=== PATIENT | female | born 1995 | race Caucasian/White ===

== ENCOUNTER 2016-10-25 19:46 | Emergency (ER) | payer BC ==
[2016-10-25] MEDS ORDERED: DIPHENHYDRAMINE HCL 50 MG CAPSULE PO ONE (20:05)
[2016-10-25] MEDS ORDERED: PROCHLORPERAZINE MALEATE 10 MG TABLET PO ONE (20:05)
[2016-10-25] MEDS ORDERED: ACETAMINOPHEN 325 MG TABLET PO ONE (20:05)
--- NOTE | 2016-10-25 20:09 | ER Document Report ---
ED Medical Screen (RME) - General Stated Complaint: HEADACHE Time seen by provider: 20:03 Mode of Arrival: Ambulatory Information source: Patient Notes: 21-year-old normally healthy female had a spontaneous nosebleed yesterday at 9 PM while she was in the car. 10 minutes later she had agradual onset 3/5 frontal headache that radiated around to the posterior occiput. She took Motrin and went to sleep. When she woke up this morning the headache was 4/5 headache now is 5/5. Has Nexplanon and does not take any anticoagulants. No hx migraines. I have greeted and performed a rapid initial assessment of this patient. A comprehensive ED assessment, evaluation of the patient, analysis of test results , and completion of the medical decision making process will be contacted by additional ED providers. I have consulted with the supervisory physician dr rodney per [facility] Guidelines. for labs and CT - Related Data Allergies/Adverse Reactions: No Known Allergies Allergy (Unverified 10/25/16 20:04) Physical Exam - Vital signs Vitals: Temp Pulse Resp BP Pulse Ox 97.9 F 72 16 153/81 H 97 10/25/16 19:57 10/25/16 19:57 10/25/16 19:57 10/25/16 19:57 10/25/16 19:57 Course - Vital Signs Vital signs: Temp Pulse Resp BP Pulse Ox 97.9 F 72 16 153/81 H 97 10/25/16 19:57 10/25/16 19:57 10/25/16 19:57 10/25/16 19:57 10/25/16 19:57
[2016-10-25 20:24] LABS: ABSOLUTE BASOPHILS # (AUTO) 0.1 10^3/uL (0.0-0.2); ABSOLUTE LYMPHOCYTES (AUTO) 2.5 10^3/uL (0.5-4.7); ABSOLUTE MONOCYTES (AUTO) 0.5 10^3/uL (0.1-1.4); BASOPHILS % (AUTO) 0.8 % (0-2); EOSINOPHILS % (AUTO) 0.5 % (0-6); HEMATOCRIT 44.2 % (36.0-47.0); HGB HCT DIFFERENCE 0.8; LYMPHOCYTES % (AUTO) 30.5 % (13-45); MEAN CORPUSCULAR HEMOGLOBIN 31.2 pg (27.0-33.4); MEAN CORPUSCULAR VOLUME 92 fl (80-97); MONOCYTES % (AUTO) 6.4 % (3-13); RED BLOOD COUNT 4.81 10^6/uL (3.72-5.28); RED CELL DISTRIBUTION WIDTH 12.8 % (11.5-14.0); SEGMENTED NEUTROPHILS % (AUTO) 61.8 % (42-78); WHITE BLOOD COUNT 8.1 10^3/uL (4.0-10.5)
[2016-10-25 20:49] LABS: PROTHROMBIN TIME 11.8 SEC (11.4-15.4)
[2016-10-25 20:50] LABS: PARTIAL THROMBOPLASTIN TIME 25.8 SEC (23.5-35.8)
[2016-10-25] MEDS ORDERED: PROCHLORPERAZINE EDISYLATE INJ 10 MG/2 ML VIAL IV ONE (22:21)
[2016-10-25] MEDS ORDERED: KETOROLAC TROMETHAMINE INJ/PF 30 MG/1 ML SDV IV ONE (22:22)
[2016-10-25] MEDS ORDERED: DIPHENHYDRAMINE HCL 50 MG/ML VIAL IV ONE (22:22)
[2016-10-25] MEDS ORDERED: NORMAL SALINE 1000 ML 1,000 ML IV ONE (22:22)
--- NOTE | 2016-10-25 22:28 | ER Document Report ---
ED General - General Chief Complaint: Headache Stated Complaint: HEADACHE Mode of Arrival: Ambulatory Notes: Patient is a 21-year-old female without significant past medical history, does take control pills who presents with a severe headache. Describes the headache as a constant, throbbing headache over the bitemporal region. Worsened by light and sounds. States it started last night after she developed a nosebleed. States it has progressively worsens onset. States reached maximal intensity approximately 15-20 hours after onset. No history of similar symptoms in the past to this degree of severity. She has tried ibuprofen at home without any improvement of her symptoms. She has not seen her primary care physician regarding today's concerns. She denies any associated fever, neck pain, altered mental status, vomiting, weakness or numbness. - Related Data Allergies/Adverse Reactions: No Known Allergies Allergy (Unverified 10/25/16 20:04) Past Medical History - General Information source: Patient - Social History Smoking Status: Never Smoker Frequency of alcohol use: None Drug Abuse: None Lives with: Parents Family History: Reviewed & Not Pertinent Renal/ Medical History: Denies: Hx Peritoneal Dialysis Past Surgical History: Reports: Hx Oral Surgery - Immunizations Hx Diphtheria, Pertussis, Tetanus Vaccination: Yes Review of Systems - Review of Systems Notes: Constitutional: Negative for fever. HENT: Negative for sore throat. Eyes: Negative for visual changes. Cardiovascular: Negative for chest pain. Respiratory: Negative for shortness of breath. Gastrointestinal: Negative for abdominal pain, vomiting or diarrhea. Genitourinary: Negative for dysuria. Musculoskeletal: Negative for back pain. Skin: Negative for rash. Neurological: Positive for headaches, negative for weakness or numbness. 10 point ROS negative except as marked above and in HPI. Physical Exam - Vital signs Vitals: Temp Pulse Resp BP Pulse Ox 97.9 F 72 16 153/81 H 97 10/25/16 19:57 10/25/16 19:57 10/25/16 19:57 10/25/16 19:57 10/25/16 19:57 Interpretation: Hypertensive Notes: PHYSICAL EXAMINATION: GENERAL: Well-appearing, well-nourished and in no acute distress. HEAD: Atraumatic, normocephalic. EYES: Pupils equal round and reactive to light, extraocular movements intact, sclera anicteric, conjunctiva are normal. ENT: nares patent, oropharynx clear without exudates. Moist mucous membranes. NECK: Normal range of motion, supple without lymphadenopathy LUNGS: Breath sounds clear to auscultation bilaterally and equal. No wheezes rales or rhonchi. HEART: Regular rate and rhythm without murmurs ABDOMEN: Soft, nontender, normoactive bowel sounds. No guarding, no rebound. No masses appreciated. EXTREMITIES: Normal range of motion, no pitting or edema. No cyanosis. NEUROLOGICAL: Face symmetric. Tongue protrudes midline. Extraocular motions intact. Pupils are 2 mm and equally reactive. Normal speech, normal gait. 5 out of 5 strength in both the distal and proximal upper and lower extremities bilaterally. Sensation is grossly intact throughout. Finger to nose testing normal. Pronator drift normal. PSYCH: Normal mood, normal affect. SKIN: Warm, Dry, normal turgor, no rashes or lesions noted. Course - Re-evaluation Re-evalutation: 10/25/16 22:28 Presentation of a headache that appears to be most consistent with tension versus migrainous type headache. Headache was not maximal in onset, patient has no focal neurologic deficits, no nuchal rigidity, vital signs within normal limits, no papilledema, and patient is overall well in appearance. Based on clinical history and examination I do not suspect an acute subarachnoid hemorrhage, dural venous sinus thrombosis, acute meningitis, or intercranial mass. Given my low clinical suspicion for any acute life-threatening etiology, I do not feel advanced neuro imaging or laboratory testing is indicated at this time. Will proceed with headache cocktail and reassess. 10/26/16 00:46 Patient has had a complete resolution of her headache at this time. At this time will discharge with return precautions and follow-up recommendations. Verbal discharge instructions given a the bedside and opportunity for questions given. Medication warnings reviewed. Patient is in agreement with this plan and has verbalized understanding of return precautions and the need for primary care follow-up in the next 24-72 hours. - Vital Signs Vital signs: Temp Pulse Resp BP Pulse Ox 97.8 F 76 16 104/85 97 10/26/16 00:58 10/26/16 00:58 10/26/16 00:58 10/26/16 00:58 10/26/16 00:58 - Laboratory Result Diagrams: 10/25/16 20:10 - Diagnostic Test Radiology reviewed: Reports reviewed Discharge - Discharge Clinical Impression: Headache Qualifiers: Headache type: unspecified Headache chronicity pattern: acute headache Intractability: not intractable Qualified Code(s): R51 - Headache Condition: Good Disposition: HOME, SELF-CARE Additional Instructions: You were seen today for a migraine headache. Please follow-up with your primary care doctor regarding today's ED visit. Return to emergency department immediately if you develop a headache that gets to its maximum severity within 20 minutes of onset, you pass out, you develop weakness, numbness, changes in your vision, become unable to keep any fluids down for more than 12 hours, or develop a fever greater than 100.4 degrees Fahrenheit. You need to return to the emergency department tomorrow if you have recurrence of this headache for consideration of an MRI. If you develop a similar migraine headache in the future I recommend that you immediately take 600 mg of ibuprofen and 50 mg of Benadryl and go to sleep as quickly as possible. This can often prevent your migraine headache from becoming severe.
[2016-10-25] MEDS ORDERED: LORAZEPAM INJ 2 MG/1 ML VIAL IV ONE (23:05)
[2016-10-26 01:09] VITALS: BP 104/85
== END 2016-10-26 01:10 | disposition home or self-care (01) ==
LOC: ER 19:46
DX: R51 Headache (principal); R04.0 Epistaxis; Z79.3 Long term (current) use of hormonal contraceptives
CPT/HCPCS: 99284; 96374; 96375; 36415; 85025; 85610; 85730; 70450; J1200; J1885; J2060; J0780; S0183; J7030

== ENCOUNTER 2016-11-07 07:38 | Day surgery (SDC) | payer BC ==
[2016-11-07] MEDS ORDERED: MIDAZOLAM 2 MG/2 ML INJ ONE (08:11)
[2016-11-07] MEDS ORDERED: PROPOFOL INJ 200 MG/20 ML VIAL IV ONE (08:12)
[2016-11-07] MEDS ORDERED: ONDANSETRON HCL INJ/PF 4 MG/2 ML SDV ONE (08:12)
[2016-11-07] MEDS ORDERED: HYDROMORPHONE HCL INJ/PF 2 MG/ML AMPULE ONE (08:12)
[2016-11-07] MEDS ORDERED: DEXAMETHASONE SOD PHOS INJ 10 MG/1 ML VIAL ONE (08:12)
[2016-11-07] MEDS ORDERED: SUCCINYLCHOLINE CHLORIDE INJ 200 MG/10 ML VIAL ONE (08:12)
[2016-11-07] MEDS ORDERED: DIPHENHYDRAMINE HCL 50 MG/ML VIAL ONE (08:36)
[2016-11-07] MEDS ORDERED: FENTANYL CITRATE INJ/PF 100 MCG/2 ML AMPUL ONE (08:45)
--- NOTE | 2016-11-07 13:18 | OPERATIVE REPORT E ---
Operative Report NAME: ALY HENDERSON : 1995 AGE: 21Y DATE OF SURGERY: 11/07/2016 ROOM: PREOPERATIVE DIAGNOSES: 1. CHRONIC TONSILLITIS. 2. TONSILLOLITH-FORMATION. POSTOPERATIVE DIAGNOSES: 1. CHRONIC TONSILLITIS. 2. TONSILLOLITH-FORMATION. OPERATION: 1. Examination under anesthesia of nasopharynx. 2. Tonsillectomy. SURGEON: KHADRA ANGELO M.D. ADAPTIVE PHYSICAL EDUCATION TEACHER: None. ANESTHESIA: General, Carmen Petersen MD and Rosie Koehler DO PREOPERATIVE NOTE: This is a 21-year-old girl with a long history of recurrent tonsillar infections, tonsillar swelling with difficulty swallowing solid foods and there have been multiple times when she has had bad smelling tonsilloliths. This has been going on for at least 3 years and she is ready to have her tonsils removed. PROCEDURE: The patient was seen and identified in the preoperative holding area. The situation was discussed with her mother. The patient is excited to have her tonsils taken out. She was then taken back to the operating room, placed in supine position, general anesthesia was induced and an oral endotracheal tube was placed. The patient did become somewhat erythematous all over her body. She is dermatographic. 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 She did run a little hypertensive during the early part of the anesthesia, also. A short time-out then took place and all issues relating to the patient's identity, her positioning on the table, the procedures to be performed and the risks and hazards attendant thereto were all discussed and there were no matters arising. The patient had been placed in the Caitlin position and she was now appropriately draped for tonsillectomy. The Lupe-Jcarlos gag was then inserted with care and expanded and the anatomy of the lips, mouth, tongue, teeth, palate, and pharynx was inspected and found to be normal. Red rubber catheter was inserted via the left nostril and brought out again through the mouth and secured with a hemostat. Mirror examination was made of the nasopharynx and there was no adenoid hypertrophy or sinister lesions. The red rubber catheter was then taken out. Each tonsil was grasped in turn utilizing a curved tenaculum and an incision was made well behind the anterior pillar on each side using spatula tip electrocautery set at 25 on cutting current. This instrument was used for blunt dissection of the peritonsillar space, coagulating feeding blood vessels as they came into view. Coagulating current at 55 was utilized to transect the inferior pole on each side and in this fashion, the tonsils were resected in an essentially bloodless fashion. A couple of touch up bleeding points were taken care of using suction Bovie. Following this, no bleeding could be seen and therefore the airways and nasopharynx were suctioned, the Lupe-Jcarlos gag was taken out, and the patient was extubated, light, and transferred to the PACU in good condition having tolerated the procedure well. ESTIMATED BLOOD LOSS: Less than 5 mL. COMPLICATIONS: There were no complications or untoward events. DICTATING PHYSICIAN: KHADRA ANGELO M.D. [id number] PHY#: [id number] ID: [id number] JOB#: [id number] ACCT: [id number] cc:Evan PHILLIP M.D. > MTDD
== END 2016-11-07 10:07 | disposition home or self-care (01) ==
LOC: SC 07:38
PROVIDERS: ATTEND Otolaryngology
PROC: 0CTPXZZ Resection of Tonsils, External Approach (ICD-10-PCS; principal; 2016-11-07 08:15)
DX: J35.01 Chronic tonsillitis (principal); J35.8 Other chronic diseases of tonsils and adenoids; F17.210 Nicotine dependence, cigarettes, uncomplicated
CPT/HCPCS: 88304 ×2; 42826; J2250; J1200; J3010; J1170; J0330; J2405; J2704; J1100; 170

== ENCOUNTER → 2017-04-07 | Outpatient (CLI) | payer BC ==
[2017-04-07 11:05] LABS: CHOLESTEROL 190.92 mg/dL (0-200); Direct HDL 66 mg/dL (>40); TRIGLYCERIDES 66 mg/dL (<150)
[2017-04-07 11:18] LABS: DIRECT LDL 106 mg/dL (<100)
[2017-04-08 10:45] LABS: MUMPS IGG AB 24.8 AU/mL (Immune >10.9); RUBEOLA IGG AB >300.0 AU/mL (Immune >29.9); VARICELLA ZOSTER IGG AB 749 index (Immune >165)
== END ==
LOC: OD 09:52
PROVIDERS: ATTEND Internal Medicine
DX: Z00.00 Encounter for general adult medical examination without abnormal findings (principal)
CPT/HCPCS: 36415; 80061; 84443; 86317; 86735; 86762; 86765; 86787

== ENCOUNTER 2017-09-17 20:42 | Emergency (ER) | payer BC ==
[2017-09-17] MEDS ORDERED: LORAZEPAM INJ 2 MG/1 ML VIAL IV ONE (20:48)
[2017-09-17] MEDS ORDERED: PROMETHAZINE HCL INJ 25 MG/1 ML VIAL IV ONE (20:48)
--- NOTE | 2017-09-17 20:51 | ER Document Report ---
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 She was also flushed, but she gets flushed when she stressed out. She denies panic anxiety chest pain or abdominal pain. She denies allergic reactions. She has a history of allergies to cinnamon and Genia's been ingested neither of these today. Her partner gave her Zofran and brought her to the ED. TRAVEL OUTSIDE OF THE [place] IN LAST 30 DAYS: No - Related Data Allergies/Adverse Reactions: cinnamon Allergy (Intermediate, Verified 11/07/16 08:18) TONGUE AND LIP SWELLING Past Medical History - Social History Smoking Status: Never Smoker Family History: Reviewed & Not Pertinent - Past Medical History Cardiac Medical History: Denies: Hx Heart Attack, Hx Hypertension Pulmonary Medical History: Reports: Hx Asthma - CHILD/RESOLVE AN ADULT Neurological Medical History: Denies: Hx Cerebrovascular Accident, Hx Seizures Renal/ Medical History: Denies: Hx Peritoneal Dialysis GI Medical History: Denies: Hx Hepatitis, Hx Hiatal Hernia, Hx Ulcer Infectious Medical History: Denies: Hx Hepatitis Past Surgical History: Reports: Hx Oral Surgery. Denies: Hx Mastectomy, Hx Open Heart Surgery, Hx Pacemaker - Immunizations Hx Diphtheria, Pertussis, Tetanus Vaccination: Yes Review of Systems - Review of Systems Notes: REVIEW OF SYSTEMS GEN: Funny feeling ENT: Denies sore throat, nasal discharge, ear pain EYES: Denies blurry vision, eye pain, discharge CV: Denies chest pain, palpitations, edema RESP: Denies cough, shortness of breath, wheezing GI: Vomiting without diarrhea MSK: Denies joint pain/swelling, edema, SKIN: Denies rash, skin lesions LYMPH: Denies swollen glands/lymph nodes NEURO: Denies headache, focal weakness or numbness, dizziness PSYCH: Denies depression, suicidal or homicidal ideation PHYSICAL EXAMINATION General: No acute distress, well-nourished rambling appears anxious. Head: Atraumatic, normocephalic ENT: Mouth normal, oropharynx moist, no exudates or tonsillar enlargement Eyes: Conjunctiva normal, pupils equal, lids normal Neck: No JVD, supple, no guarding CVS: Normal rate, regular rhythm, no murmurs Resp: No resp distress, equal and normal breath sounds bilaterally GI: Nondistended, soft, no tenderness to palpation, no rebound or guarding Ext: No deformities, no edema, normal range of motion in upper and lower ext Back: No CVA or midline TTP Skin: Splotchy flushing without raised urticarial lesions on the chest and arms Lymphatic: No lymphadeopathy noted Neuro: Awake, alert. Face symmetric. GCS 15. Physical Exam - Vital signs Vitals: Pulse Resp BP Pulse Ox 111 H 18 127/74 H 99 09/17/17 20:59 09/17/17 20:59 09/17/17 20:59 09/17/17 20:59 Course - Re-evaluation Re-evalutation: 09/17/17 20:50 Acute nausea and vomiting and mild tachycardia without belly pain, diarrhea, or signs of anaphylaxis. Familial flushing, mother is doing the same thing in the ED with her daughter, says that this happens when she is anxious. She also says that the rest of the family has had GI illness recently. Could be panic or anxiety. Doubt ovarian torsion or other intra-abdominal emergency. Blood sugar is normal so doubt DKA. Will give Phenergan and Ativan, do not believe she requires lab workup at this time. Prehospital EKG is s normal except for sinus tach.. 09/17/17 22:10 Patient reassessed. She did not complain of any abdominal pain initially and denied when I asked her but now she has some left lower quadrant pain which occasionally radiates to the right side. She is nontender but does have some left flank tenderness. UA and ordered. Her vomiting stopped but then started again and now she has a headache. Will give Motrin. 09/17/17 23:05 Urine negative, patient is sleeping comfortably and feels better when I wake her. She will be discharged home with return precautions. I have discussed with the patient there likely diagnosis, aftercare plan, follow-up plans and my usual and customary return precautions. They verbalized understanding of this. - Vital Signs Vital signs: Temp Pulse Resp BP Pulse Ox 111 H 18 127/74 H 99 09/17/17 20:59 09/17/17 20:59 09/17/17 20:59 09/17/17 20:59 Discharge - Discharge Clinical Impression: Nausea & vomiting Qualifiers: Vomiting type: unspecified Vomiting Intractability: intractable Qualified Code( s): R11.2 - Nausea with vomiting, unspecified Condition: Good Disposition: HOME, SELF-CARE Instructions: Vomiting ([facility]) Prescriptions: Ondansetron [Zofran Odt 4 mg Tablet] 1 - 2 tab PO Q4H PRN #15 tab.rapdis PRN Reason: For Nausea/Vomiting
[2017-09-17] MEDS ORDERED: IBUPROFEN 600 MG TABLET PO ONE (22:10)
[2017-09-17 22:35] LABS: APPEARANCE,URINE CLEAR; BILIRUBIN,URINE NEGATIVE (NEGATIVE); GLUCOSE, URINE NEGATIVE (NEGATIVE); KETONES,URINE NEGATIVE (NEGATIVE); LEUKOCYTE ESTERASE,URINE NEGATIVE (NEGATIVE); NITRITE,URINE NEGATIVE (NEGATIVE); PROTEIN,URINE NEGATIVE (NEGATIVE); URINE SPECIFIC GRAVITY 1.003; UROBILINOGEN,URINE NEGATIVE mg/dL (<2.0)
[2017-09-18 00:54] VITALS: BP 107/58
--- NOTE | 2017-09-18 07:51 | EKG REPORT ---
SEVERITY:- BORDERLINE ECG - SINUS TACHYCARDIA BORDERLINE T ABNORMALITIES, INFERIOR LEADS : Confirmed by: Miguel Portillo MD 18-Sep-2017 07:50:38
== END 2017-09-18 00:52 | disposition home or self-care (01) ==
LOC: ER 20:42
DX: R11.2 Nausea with vomiting, unspecified (principal); R23.2 Flushing; L50.9 Urticaria, unspecified; R00.0 Tachycardia, unspecified; R10.32 Left lower quadrant pain; R51 Headache; Z91.018 Allergy to other foods
CPT/HCPCS: 93005; 99284; 96374; 96375; 81025; 81001; 93010; J2060; J2550

== ENCOUNTER 2018-07-12 19:09 | Emergency (ER) | payer BC ==
[2018-07-12] MEDS ORDERED: CEPHALEXIN 500 MG CAPSULE PO ONE (19:48)
[2018-07-12] MEDS ORDERED: SULFAMETHOXAZOLE/TRIMETHOPRIM 800-160 MG TABLET PO ONE (19:48)
[2018-07-12] MEDS ORDERED: LIDOCAINE 1% INJ-PF (10 MG/ML) 30 ML SDV INJ ONE (19:48)
[2018-07-12] MEDS ORDERED: HYDROCODONE/ACETAMINOPHEN 5-325 MG (6 TAB/ER DISP) PO PRN (21:04)
--- NOTE | 2018-07-12 21:13 | ER Document Report ---
ED Skin Rash/Insect Bite/Abscs - General Chief Complaint: Abscess Stated Complaint: POSSIBLE ABSCESS Time Seen by Provider: 07/12/18 19:29 Mode of Arrival: Ambulatory Information source: Patient Notes: 23-year-old female presented to ED for painful abscess to the coccyx area. She states she has had a pilonidal cyst in the past and she thinks that that she has now. She states the pain is getting much worse and she has had a fever today. 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 Patient is alert and oriented respirations regular and unlabored walking with a even steady gait. TRAVEL OUTSIDE OF THE [place] IN LAST 30 DAYS: No - HPI Patient complains to provider of: Tender/swollen area Onset: Other - Several days Onset/Duration: Gradual Quality of pain: Sharp, Throbbing Severity: Moderate Pain Level: 4 Skin Character: Abscess - Pilonidal abscess Quality of rash: Painful Identify cause: Yes Exacerbated by: Sitting, Movement, Walking Relieved by: Denies Similar symptoms previously: Yes Recently seen / treated by doctor: No - Related Data Allergies/Adverse Reactions: cinnamon Allergy (Intermediate, Verified 11/07/16 08:18) TONGUE AND LIP SWELLING Past Medical History - General Information source: Patient - Social History Smoking Status: Current Every Day Smoker Cigarette use (# per day): Yes - 1/2 pack/day Chew tobacco use (# tins/day): No Smoking Education Provided: Yes - 4 minutes Frequency of alcohol use: Social Drug Abuse: None 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 Lives with: Spouse/Significant other Family History: Reviewed & Not Pertinent Patient has suicidal ideation: No Patient has homicidal ideation: No - Past Medical History Cardiac Medical History: Reports: None Pulmonary Medical History: Reports: Hx Asthma - CHILD/RESOLVE AN ADULT Neurological Medical History: Denies: Hx Cerebrovascular Accident, Hx Seizures Renal/ Medical History: Reports: None Malignancy Medical History: Reports: None GI Medical History: Reports: None Musculoskeletal Medical History: Reports Hx Arthritis - Rheumatoid arthritis Skin Medical History: Reports None Psychiatric Medical History: Reports: None Infectious Medical History: Reports: None Past Surgical History: Reports: Hx Myringotomy, Hx Oral Surgery - [place] teeth - Immunizations Immunizations up to date: Yes Hx Diphtheria, Pertussis, Tetanus Vaccination: Yes Review of Systems - Review of Systems Constitutional: No symptoms reported EENT: No symptoms reported Cardiovascular: No symptoms reported Respiratory: No symptoms reported Gastrointestinal: No symptoms reported Genitourinary: No symptoms reported Female Genitourinary: No symptoms reported Musculoskeletal: No symptoms reported Skin: Other - Pain in area of her pilonidal cyst Hematologic/Lymphatic: No symptoms reported Neurological/Psychological: No symptoms reported Physical Exam - Vital signs Vitals: Temp Pulse Resp BP Pulse Ox 98.7 F 101 H 16 144/81 H 98 07/12/18 19:19 07/12/18 19:19 07/12/18 19:19 07/12/18 19:19 07/12/18 19:19 Interpretation: Normal - General General appearance: Appears well, Alert - HEENT Head: Normocephalic, Atraumatic Eyes: Normal Pupils: PERRL - Respiratory Respiratory status: No respiratory distress Chest status: Nontender Breath sounds: Normal Chest palpation: Normal - Cardiovascular Rhythm: Regular Heart sounds: Normal auscultation Murmur: No - Abdominal Inspection: Normal Distension: No distension Bowel sounds: Normal Tenderness: Nontender Organomegaly: No organomegaly - Back Back: Normal, Nontender - Extremities General upper extremity: Normal inspection, Nontender, Normal color, Normal ROM , Normal temperature General lower extremity: Normal inspection, Nontender, Normal color, Normal ROM , Normal temperature, Normal weight bearing. No: Joselyn's sign - Neurological Neuro grossly intact: Yes Cognition: Normal Orientation: AAOx4 Dele[place] Coma Scale Eye Opening: Spontaneous Dele[place] Coma Scale Verbal: Oriented Delevan Coma Scale Motor: Obeys Commands Harry Coma Scale Total: 15 Speech: Normal Motor strength normal: LUE, RUE, LLE, RLE Sensory: Normal - Psychological Associated symptoms: Normal affect, Normal mood - Skin Skin Temperature: Warm Skin Moisture: Dry Skin Color: Normal Skin irregularity: Abscess - Pilonidal cyst/abscess Location of irregularity: Other - Coccyx Irregularity with: Swelling, Tenderness Course - Vital Signs Vital signs: Temp Pulse Resp BP Pulse Ox 98.3 F 94 20 134/86 H 97 07/12/18 21:26 07/12/18 21:26 07/12/18 21:26 07/12/18 21:26 07/12/18 21:26 Procedures - Incision and Drainage Mid-pilonidal cyst Time completed: 21:00 Type: Simple Anesthetic type: 1% Lidocaine mL's of anesthetic: 10 Blade size: 11 I&D procedure: Shurclens applied, Iodoform packing placed, Sterile dressing applied Incision Method: Incision made by scalpel Discharge - Discharge Clinical Impression: Pilonidal abscess Condition: Stable Disposition: HOME, SELF-CARE Additional Instructions: ABSCESS: You have an abscess (boil). This a pus-forming infection, usually due to staph. Some boils may be left to drain on their own, but most require lancing. From the time the tender lump first appears, it may be three or four days before the abscess is ready to shanthi. Local heat and rest help at this stage of treatment. An antibiotic may prevent spread of the infection. Once the abscess is opened, packing may be placed into it. This is done so pus is not sealed inside by premature closure of the cavity. The packing will be removed at your follow-up visit or you may be advised to remove it yourself at home. Sometimes this packing must be replaced a few times during healing. The wound will heal with surprisingly little scar. Depending on the size and location of an abscess, healing can take one to four weeks. You may shower and wash the area around the incision site two or three times a day. Antibiotics may be prescribed, but are usually not necessary after an abscess has been drained. If you develop fever, chills, worsening pain, or increasing swelling in the area, call the doctor or return immediately. POST INCISION AND DRAINAGE: You have had an incision made to allow drainage of an abscess. The incision must remain open so that pus and debris can drain from the wound. If the abscess cavity is large, packing is placed. This keeps the tissues from collapsing and trapping pus inside, while the body shrinks the cavity. The packing may need to be replaced every day or two. The physician will instruct you on the packing. Keep a bulky dressing over the area. Replace it if it becomes saturated with blood or pus. Do not disturb the packing (if present). You may shower and cleanse the area with gentle soap and warm water two or three times a day. Local warmth may be soothing, and may promote faster healing. Return if you develop high fever or chills, or if you note spreading redness, increasing swelling, or increasing tenderness. Packing will need to be removed in 2 days. Please have your primary doctor remove the packing and replace it with a new packing. Then you will be able to remove that packing in 2 days yourself and then start sitting in warm baths 3 times a day while the area continues to heal. Please have your primary doctor refer you to a surgeon for follow-up for this pilonidal cyst/abscess ORAL NARCOTIC MEDICATION: You have been given a norco dispense pack for pain control. This medication is a narcotic. It's best taken with food, as nausea can result if taken on an empty stomach. Don't operate machinery or drive within six hours of taking this medication. Do not combine this medicine with alcohol, or with any medication which can cause sedation (such as cold tablets or sleeping pills) unless you get permission from the physician. Narcotics tend to cause constipation. If possible, drink plenty of fluids and eat a diet high in fiber and fruits. CEPHALEXIN: The antibiotic you've been prescribed is a member of the cephalosporin class. This type of antibiotic covers a wide variety of infections, including those of the skin, lungs, and urinary tract. It's useful for staph infections. This antibiotic is slightly similar to the penicillin family. In rare cases , a person who is allergic to penicillin will also be allergic to this medication. If you have had a severe allergic reaction to penicillin, and have not taken this antibiotic since that time, notify your doctor. Antibiotics which cover many germs ("broad spectrum" antibiotics) are more likely to cause diarrhea or "yeast" infections. Women prone to vaginal yeast problems may suffer an attack after taking this antibiotic. In infants, oral thrush (white spots "stuck" on the cheek) or yeast diaper rash may result. See your doctor if these problems occur. Call at once if you develop itching, hives , shortness of breath, or lightheadedness. TRIMETHOPRIM-SULFA: You have been given a prescription for trimethoprim-sulfa (TMS, Septra, Bactrim). This is a combination antibiotic of the sulfa class, often used for urinary tract infections, middle ear infections, bronchitis, shigella intestinal infection, and Pneumocystis pneumonia. TMS is usually well-tolerated. Occasional side effects include nausea and decreased appetite. Septra is not recommended for infants less than two months of age. Do not take this medication if you have experienced severe side effects or allergy to sulfa medicine. You should stop this medicine at once and contact your physician if you develop any rash, joint pain, shortness of breath, bruising, or jaundice ( yellow color in the skin), or if you develop any other new or unusual symptoms. FOLLOW-UP CARE: Most simple abscesses will not require a follow up visit. If you had packing placed in the abscess, remove it as instructed by the physician. If you have been referred to a physician for follow-up care, call the physicians office for an appointment as you were instructed or within the next two days. If you experience worsening or a significant change in your symptoms, return to the Emergency Department at any time for re-evaluation. Prescriptions: Cephalexin Monohydrate [Keflex 500 mg Capsule] 500 mg PO QID #40 capsule Sulfamethoxazole/Trimethoprim [Septra-Ds 800-160 mg Tablet] 1 tab PO BID #20 tablet Forms: Elevated Blood Pressure, Smoking Cessation Education, Return to Work
[2018-07-12 21:28] VITALS: BP 134/86
== END 2018-07-12 21:29 | disposition home or self-care (01) ==
LOC: ER 19:09
PROC: 0H98XZZ Drainage of Buttock Skin, External Approach (ICD-10-PCS; principal; 2018-07-12)
DX: L05.01 Pilonidal cyst with abscess (principal); F17.210 Nicotine dependence, cigarettes, uncomplicated
CPT/HCPCS: 99406; 99283; 87070; 87205; 87075; 87077; 10080; A6266; J3490

== ENCOUNTER 2018-10-14 12:12 | Day surgery (SDC) | payer OTHER, BC ==
[~2018-10-14 12:12] MED LIST: CEFOXITIN SODIUM 2 GM in DEXTROSE 5%-WATER 100 ML IV PRN
[2018-10-14] MEDS ORDERED: MIDAZOLAM 2 MG/2 ML INJ ONE (12:15)
[2018-10-14] MEDS ORDERED: PROPOFOL INJ 200 MG/20 ML VIAL IV ONE (12:15)
[2018-10-14] MEDS ORDERED: FENTANYL CITRATE INJ/PF 100 MCG/2 ML AMPUL ONE (12:15)
[2018-10-14] MEDS ORDERED: ACETAMINOPHEN 1,000 MG/100 ML RTUPB IV ONE (12:15)
[2018-10-14] MEDS ORDERED: ONDANSETRON HCL INJ/PF 4 MG/2 ML SDV ONE (14:15)
[2018-10-14] MEDS ORDERED: DEXAMETHASONE SOD PHOS INJ 10 MG/1 ML VIAL ONE (14:15)
[2018-10-14] MEDS ORDERED: SUCCINYLCHOLINE CHLORIDE INJ 200 MG/10 ML VIAL ONE (14:16)
[2018-10-14] MEDS ORDERED: KETOROLAC TROMETHAMINE INJ/PF 30 MG/1 ML SDV ONE (14:49)
[2018-10-14] MEDS ORDERED: BUPIVACAINE HCL 0.5 % INJ/PF 30 ML SDV ONE (15:35)
[2018-10-14] MEDS ORDERED: OXYCODONE-ACETAMINOPHEN 5-325 MG TABLET ONE (15:49)
--- NOTE | 2018-10-14 15:55 | Discharge Summary ---
Discharge Summary (SDC) - Discharge Final Diagnosis: Pilonidal cyst Date of Surgery: 10/14/18 Discharge Date: 10/14/18 Condition: Stable Forms: [facility] Discharge Plan Treatment or Instructions: Discharge home. Diet as tolerated. Activity: Nonstrenuous. [place]ail 10/55 mg p.o. every 6 hours as needed for pain. Okay to shower starting tomorrow. Keep the incision clean and dry. Follow-up with me in 2 weeks. Referrals: HUONG OLVERA MD [ACTIVE STAFF] - Discharge Diet: As Tolerated Respiratory Treatments at Home: Deep Breathing/Coughing, Incentive Spirometer Discharge Activity: Balance Activity w/Rest Home Care Assistance: None Needed Report the Following to Your Physician Immediately: Shortness of Breath, Nausea, Vomiting, Increase in Pain, Fever over 101 Degrees, Unusual Bleeding, Redness
--- NOTE | 2018-10-14 15:58 | Operative Report ---
Nonrecallable Operative Report DATE OF SURGERY: 10/14/18 PREOPERATIVE DIAGNOSIS: Symptomatic pilonidal cyst POSTOPERATIVE DIAGNOSIS: Same as above OPERATION: Excision of pilonidal cyst SURGEON: HUONG OLVERA ANESTHESIA: GA TISSUE REMOVED OR ALTERED: Pilonidal cyst COMPLICATIONS: None apparent ESTIMATED BLOOD LOSS: Minimal PROCEDURE: Drains/implants: None. Procedure in detail: After informed consent was obtained, the patient was brought into the operating room and laid in the prone jackknife position. The area of the sacrum and pilonidal area were prepped and draped in a normal sterile fashion. A 15 blade scalpel was used to excise the pits within the gluteal cleft. The pilonidal cyst was excised down to the sacral fascia using electrocautery. All indurated, affected, and granulation tissue was excised. The subcutaneous tissue was then closed using 2-0 Vicryl suture in simple interrupted fashion. The overlying skin was closed using 0 Vicryl suture in vertical mattress fashion. A dressing was placed, and the procedure was concluded. All sponge, instrument, and needle counts were correct x2. Condition: Stable.
== END 2018-10-14 16:38 | disposition home or self-care (01) ==
LOC: SC 12:12
PROVIDERS: ATTEND Surgery
DX: L05.91 Pilonidal cyst without abscess (principal); Z88.8 Allergy status to other drugs, medicaments and biological substances; F17.210 Nicotine dependence, cigarettes, uncomplicated; M06.9 Rheumatoid arthritis, unspecified; Z01.818 Encounter for other preprocedural examination
CPT/HCPCS: 11771; J2250; J3490; J0694; J3010; J1885; J0330; J2405; J2704; J1100; J0131; 300

== ENCOUNTER 2018-12-04 09:41 | Emergency (ER) | payer OTHER, BC ==
--- NOTE | 2018-12-04 10:10 | ER Document Report ---
ED Allergic Reaction - General Chief Complaint: Allergic Reaction Stated Complaint: POSSIBLE ALLERGIC REACTION Time Seen by Provider: 12/04/18 10:04 Primary Care Provider: KHADRA DOUGLAS MD [ACTIVE STAFF] - Follow up as needed Mode of Arrival: Medic Information source: Patient TRAVEL OUTSIDE OF THE [place] IN LAST 30 DAYS: No - HPI Onset: Just prior to arrival Onset/Duration: Sudden, Better Quality of pain: No pain Severity: Mild Pain Level: 0 Identified cause: Yes Medication Exposure: Other - Cinnamon Food exposure: Other - Cinnamon Skin rash / itching: Facial, Trunk, "Redness", "Hives" Swelling: Diffuse Trouble swallowing / speaking: Mild Associated symptoms: None Recent Illness: Vomiting Similar symptoms previously: Yes Recently seen / treated by doctor: No - Related Data Allergies/Adverse Reactions: cinnamon Allergy (Severe, Verified 10/11/18 16:52) Anaphylaxis metronidazole [From Flagyl] Allergy (Intermediate, Verified 10/11/18 16:52) PROJECTILE VOMITING GERALD Allergy (Intermediate, Uncoded 10/11/18 16:52) Hives Past Medical History - Social History Smoking Status: Current Every Day Smoker Family History: Reviewed & Not Pertinent Patient has suicidal ideation: No Patient has homicidal ideation: No - Past Medical History Cardiac Medical History: Denies: Hx Heart Attack, Hx Hypertension Pulmonary Medical History: Reports: Hx Asthma - CHILD/RESOLVE AN ADULT Neurological Medical History: Denies: Hx Cerebrovascular Accident, Hx Seizures Renal/ Medical History: Denies: Hx Peritoneal Dialysis GI Medical History: Denies: Hx Hepatitis, Hx Hiatal Hernia, Hx Ulcer Musculoskeletal Medical History: Reports Hx Arthritis - RA Infectious Medical History: Denies: Hx Hepatitis Past Surgical History: Reports: Hx Myringotomy, Hx Oral Surgery - [place] teeth. Denies: Hx Hysterectomy, Hx Mastectomy, Hx Open Heart Surgery, Hx Pacemaker - Immunizations Immunizations up to date: Yes Hx Diphtheria, Pertussis, Tetanus Vaccination: Yes Review of Systems - Review of Systems Constitutional: No symptoms reported EENT: No symptoms reported Cardiovascular: No symptoms reported Respiratory: No symptoms reported Gastrointestinal: No symptoms reported Genitourinary: No symptoms reported Female Genitourinary: No symptoms reported Musculoskeletal: No symptoms reported Skin: Rash, Other - Hives Hematologic/Lymphatic: No symptoms reported Neurological/Psychological: No symptoms reported -: Yes All other systems reviewed and negative Physical Exam - Vital signs Vitals: BP Pulse Ox 154/81 H 99 12/04/18 09:46 12/04/18 09:46 Interpretation: Normal - General General appearance: Appears well, Alert - HEENT Head: Normocephalic, Atraumatic Eyes: Normal Pupils: PERRL - Respiratory Respiratory status: No respiratory distress Chest status: Nontender Breath sounds: Normal Chest palpation: Normal - Cardiovascular Rhythm: Regular Heart sounds: Normal auscultation Murmur: No - Abdominal Inspection: Normal Distension: No distension Bowel sounds: Normal Tenderness: Nontender Organomegaly: No organomegaly - Back Back: Normal, Nontender - Extremities General upper extremity: Normal inspection, Nontender, Normal color, Normal ROM, Normal temperature General lower extremity: Normal inspection, Nontender, Normal color, Normal ROM, Normal temperature, Normal weight bearing. No: Joselyn's sign - Neurological Neuro grossly intact: Yes Cognition: Normal Orientation: AAOx4 Opdyke Coma Scale Eye Opening: Spontaneous Harry Coma Scale Verbal: Oriented Opdyke Coma Scale Motor: Obeys Commands Harry Coma Scale Total: 15 Speech: Normal Motor strength normal: LUE, RUE, LLE, RLE Sensory: Normal - Psychological Associated symptoms: Normal affect, Normal mood - Skin Skin Temperature: Warm Skin Moisture: Dry Skin Color: Normal Skin irregularity: Rash Location of irregularity: Face, Chest Character of irregularity: Urticarial Course - Vital Signs Vital signs: Temp Pulse Resp BP Pulse Ox 98.1 F 19 149/90 H 97 12/04/18 10:01 12/04/18 10:23 12/04/18 10:23 12/04/18 10:23 - Transfer of Care Notes: 12/04/18 10:55 Patient said that she fells much better and her hives has resolved. She wants to be discharged so that she can go back to work today. Discharge - Discharge Clinical Impression: Allergic reaction Qualifiers: Encounter type: initial encounter Qualified Code(s): T78.40XA - Allergy, unspecified, initial encounter Condition: Stable Disposition: HOME, SELF-CARE Instructions: Acute Allergic Reaction ([facility]) Additional Instructions: Please follow up with your regular doctor on Thursday. Return to the ED if your condition worsens. Prescriptions: Diphenhydramine HCl [Benadryl 25 mg Capsule] 25 mg PO Q6 PRN #20 capsule PRN Reason: Itching Prednisone [Deltasone 20 mg Tablet] 3 tab PO DAILY 3 Days #9 tablet Forms: Return to Work Referrals: KHADRA DOUGLAS MD [ACTIVE STAFF] - Follow up as needed
[2018-12-04 10:25] VITALS: BP 149/90
== END 2018-12-04 11:15 | disposition home or self-care (01) ==
LOC: ER 09:41
DX: L50.0 Allergic urticaria (principal)
CPT/HCPCS: 99283

== ENCOUNTER 2020-01-10 22:35 | Emergency (ER) | payer BC, OTHER ==
--- NOTE | 2020-01-10 22:51 | ER Document Report ---
ED Medical Screen (RME) - General Chief Complaint: Dizziness Stated Complaint: LIGHTHEADEDNESS, NAUSEA, SHAKES Time Seen by Provider: 01/10/20 22:48 Notes: HPI: 24-year-old female who is reasonably healthy with history of essential tremor brought in for evaluation of acute dizziness this afternoon while driving to work. 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 States that when she did get to work they checked her blood pressure and it was elevated for her. She states that she felt like she was going to pass out while driving into work. Did have nausea vomiting when she stood up. No chest pain no shortness of breath. No unilateral weakness no slurred speech. States headache was frontal in nature and is slowly resolving. No abdominal pain. I have greeted and performed a rapid initial assessment of this patient. A comprehensive ED assessment and evaluation of the patient, analysis of test results and completion of the medical decision making process will be conducted by additional ED providers PHYSICAL EXAMINATION: Essential tremor is noted. Answering all questions appropriately, oriented x3. Lung sounds are clear to auscultation regular rate and rhythm EKG normal sinus rhythm without visible ectopy. No abdominal pain on palpation limited by positioning in triage I have greeted and performed a rapid initial assessment of this patient. A comprehensive ED assessment and evaluation of the patient, analysis of test results and completion of medical decision making process will be conducted by an additional ED providers. TRAVEL OUTSIDE OF THE [place] IN LAST 30 DAYS: No - Related Data Allergies/Adverse Reactions: cinnamon Allergy (Severe, Verified 10/11/18 16:52) Anaphylaxis metronidazole [From Flagyl] Allergy (Intermediate, Verified 10/11/18 16:52) PROJECTILE VOMITING GERALD Allergy (Intermediate, Uncoded 10/11/18 16:52) Hives Past Medical History - Past Medical History Cardiac Medical History: Denies: Hx Heart Attack, Hx Hypertension Pulmonary Medical History: Reports: Hx Asthma - CHILD/RESOLVE AN ADULT Neurological Medical History: Denies: Hx Cerebrovascular Accident, Hx Seizures Renal/ Medical History: Denies: Hx Peritoneal Dialysis GI Medical History: Denies: Hx Hepatitis, Hx Hiatal Hernia, Hx Ulcer Musculoskeltal Medical History: Reports Hx Arthritis - RA Infectious Medical History: Denies: Hx Hepatitis Past Surgical History: Reports: Hx Myringotomy, Hx Oral Surgery - [place] teeth. Denies: Hx Hysterectomy, Hx Mastectomy, Hx Open Heart Surgery, Hx Pacemaker - Immunizations Immunizations up to date: Yes Hx Diphtheria, Pertussis, Tetanus Vaccination: Yes
--- NOTE | 2020-01-10 23:43 | RADIOLOGY REPORT (SQ) ---
EXAM DESCRIPTION: XR CHEST 2 VIEWS COMPLETED DATE/TME: 01/10/2020 22:49 CLINICAL HISTORY: dizziness COMPARISON: None FINDINGS: Cardiac silhouette is within normal limits. There is no focal parenchymal or pleural disease. There is no acute osseous process visualized. IMPRESSION: No evidence of acute cardiopulmonary disease.
--- NOTE | 2020-01-10 23:48 | RADIOLOGY REPORT (SQ) ---
EXAM DESCRIPTION: CT HEAD WITHOUT IV CONTRAST COMPLETED DATE/TME: 01/10/2020 11:17 PM CLINICAL HISTORY: dizziness, ELEVATED BP. COMPARISON: None Available. TECHNIQUE: Contiguous axial images of the brain were obtained without the administration of intravenous contrast. This exam was performed according to our departmental dose-optimization program, which includes automated exposure control, adjustment of the mA and/or kV according to patient size and/or use of iterative reconstruction technique. FINDINGS: There is no acute intracranial hemorrhage or mass effect. Ventricular system is within normal limits. There is adequate vega-white matter differentiation. There is no skull fracture. The visualized paranasal sinuses and mastoid air cells are within normal limits. IMPRESSION: No acute intracranial abnormalities.
[2020-01-10 23:53] LABS: ABSOLUTE EOSINOPHILS # (AUTO) 0.1 10^3/uL (0.0-0.6); ABSOLUTE MONOCYTES (AUTO) 0.5 10^3/uL (0.1-1.4); ABSOLUTE NEUT (AUTO) 5.1 10^3/uL (1.7-8.2); BASOPHILS % (AUTO) 0.6 % (0-2); EOSINOPHILS % (AUTO) 0.9 % (0-6); HEMOGLOBIN 15.6 g/dL (12.0-15.5); LYMPHOCYTES % (AUTO) 25.8 % (13-45); MEAN CORPUSCULAR HEMOGLOBIN 31.9 pg (27.0-33.4); MEAN CORPUSCULAR HGB CONC 35.5 g/dL (32.0-36.0); MEAN CORPUSCULAR VOLUME 90 fl (80-97); MONOCYTES % (AUTO) 6.6 % (3-13); PLATELET COUNT 267 10^3/uL (150-450); RED CELL DISTRIBUTION WIDTH 12.9 % (11.5-14.0); SEGMENTED NEUTROPHILS % (AUTO) 66.1 % (42-78); TOTAL CELLS COUNTED % (AUTO) 100 %; WHITE BLOOD COUNT 7.7 10^3/uL (4.0-10.5)
[2020-01-11] MEDS ORDERED: ONDANSETRON HCL INJ/PF 4 MG/2 ML SDV IV ONE ×2 (00:06→02:21)
[2020-01-11 00:11] LABS: ALBUMIN 4.6 g/dL (3.5-5.0); ALKALINE PHOSPHATASE 67 U/L (38-126); ANION GAP 9 (5-19); ASPARTATE AMINO TRANSFERASE 24 U/L (14-36); BILIRUBIN,TOTAL 0.5 mg/dL (0.2-1.3); BLOOD UREA NITROGEN 9 mg/dL (7-20); CALCIUM 9.3 mg/dL (8.4-10.2); CARBON DIOXIDE 23 mmol/L (22-30); CHLORIDE 104 mmol/L (98-107); GLUCOSE 85 mg/dL (75-110); POTASSIUM 3.9 mmol/L (3.6-5.0); TOTAL PROTEIN 7.7 g/dL (6.3-8.2)
--- NOTE | 2020-01-11 00:20 | ER Document Report ---
ED General - General Chief Complaint: Near Syncope Stated Complaint: LIGHTHEADEDNESS, NAUSEA, SHAKES Time Seen by Provider: 01/10/20 22:48 Primary Care Provider: AGUSTÍN SMITH MD [Primary Care Provider] - Follow up as needed Information source: Patient TRAVEL OUTSIDE OF THE [place] 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 patient had EKG in the field when symptomatic without any significant findings. Also had fingerstick which was normal. Patient continues to feel nauseous, lightheaded, and generally weak. DCed OCP few weeks ago. Patient denies any focal weakness, trauma, syncope, chest pain, shortness of breath, cough, sore throat, myalgia, fever, abdominal pain, melena/bright red blood per rectum, vaginal bleeding/vaginal discharge, , urinary symptoms, prior episodes, change in p.o. 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), lower extremity edema, DVT/PE/ hypercoagulability history in self or family, cancer history, recent travel/surgery/immobilization, family premature cardiac history - Related Data Allergies/Adverse Reactions: cinnamon Allergy (Severe, Verified 10/11/18 16:52) Anaphylaxis metronidazole [From Flagyl] Allergy (Intermediate, Verified 10/11/18 16:52) PROJECTILE VOMITING GERALD Allergy (Intermediate, Uncoded 10/11/18 16:52) Hives Home Medications: Propanaolol Past Medical History - General Information source: Patient - Social History Smoking Status: Current Every Day Smoker Family History: Reviewed & Not Pertinent Patient has suicidal ideation: No Patient has homicidal ideation: No - Past Medical History Cardiac Medical History: Denies: Hx Heart Attack, Hx Hypertension Pulmonary Medical History: Reports: Hx Asthma - CHILD/RESOLVE AN ADULT Neurological Medical History: Denies: Hx Cerebrovascular Accident, Hx Seizures Renal/ Medical History: Denies: Hx Peritoneal Dialysis GI Medical History: Denies: Hx Hepatitis, Hx Hiatal Hernia, Hx Ulcer Musculoskeletal Medical History: Reports Hx Arthritis - RA Infectious Medical History: Denies: Hx Hepatitis Past Surgical History: Reports: Hx Myringotomy, Hx Oral Surgery - [place] teeth. Denies: Hx Hysterectomy, Hx Mastectomy, Hx Open Heart Surgery, Hx Pacemaker - Immunizations Immunizations up to date: Yes Hx Diphtheria, Pertussis, Tetanus Vaccination: Yes Review of Systems - Review of Systems Notes: REVIEW OF SYSTEMS: CONSTITUTIONAL : Denies fever, +chills EENT: Denies recent cold/sinus symptoms, denies throat pain CARDIOVASCULAR: Denies chest pain, HÉCTOR RESPIRATORY: Denies cough, denies shortness of breath. GASTROINTESTINAL: Denies abdominal pain, +nausea/vomiting. GENITOURINARY: Denies difficulty urinating, painful urination. FEMALE GENITOURINARY: Denies abnormal vaginal bleeding, vaginal discharge. MUSCULOSKELETAL: Denies neck pain or stiffness, back pain. SKIN: Denies rash or skin lesions. HEMATOLOGIC : Denies easy bruising or bleeding. LYMPHATIC: Denies swollen, enlarged glands. NEUROLOGICAL: +headache, denies change in gait. PSYCHIATRIC: Denies anxiety or stress or depression. Physical Exam - Vital signs Vitals: Pulse Resp BP Pulse Ox 93 20 144/80 H 99 01/10/20 22:35 01/10/20 22:35 01/10/20 22:35 01/10/20 22:35 - Notes Notes: PHYSICAL EXAMINATION: GENERAL: Well-appearing, well-nourished, diffusely tremulous, young adult female sitting up in stretcher in no acute distress. HEAD: Atraumatic, normocephalic. EYES: Pupils equal round and appropriate constriction, sclera anicteric, conjunctiva are normal. ENT: nares patent, moist mucous membranes. NECK: Normal range of motion, supple without lymphadenopathy LUNGS: Breath sounds clear to auscultation bilaterally and equal. No wheezes rales or rhonchi. HEART: Tachycardia with regular rhythm without murmurs ABDOMEN: Soft, nontender, no guarding, no masses, no CVAT EXTREMITIES: Normal range of motion, no pitting or edema. No cyanosis. NEUROLOGICAL: Awake, alert, conversing appropriately, moves all extremities spontaneously, diffuse resting tremor that resolves with intention, cranial nerves II through XII intact bilaterally, strength 5 out of 5 in all extremities, normal sensation, imipnp-ke-clag normal, negative Copen-Hallpike, hints exam: normal head impulse no nystagmus no skew PSYCH: Normal mood, normal affect. SKIN: Warm, Dry, normal turgor, no rashes or lesions noted, Mild hyperemia of bilateral upper extremities neck and face. Course - Re-evaluation Re-evalutation: 01/11/20 00:25 Presentation most concerning for early infectious presentation possible flu versus COVID, rule out symptomatic anemia, ACS, PE, symptomatic hyperthyroid state, electrolyte abnormalities. Less likely paroxysmal arrhythmia as patient had EKG in the field when she was acutely symptomatic and was normal sinus . mildly hyperemic on upper extremities face and neck but presentation not consistent with SVC syndrome, will recommend outpatient follow-up for this finding. Plan: EKG, monitor, chest x-ray, troponin, dimer, IV crystalloid, TSH, CBC, BMP, flu and COVID testing, likely DC with COVID precautions and outpatient PCP follow-up. 01/11/20 02:22 No emergent findings on initial work-up, patient feels significantly improved after IV fluids and is able to ambulate with minimal lightheadedness, and tachycardia has resolved with patient running heart rates in the 80s at rest on bedside monitor. Additional dose of Zofran given for additional episode of emesis, but tolerating p.o. in interim, will p.o. trial prior to discharge and DC with Zofran ODT, COVID quarantine precautions, and return to ED precautions. 01/11/20 02:26 - Vital Signs Vital signs: Temp Pulse Resp BP Pulse Ox 99.0 F 109 H 18 133/73 H 98 01/10/20 23:01 01/10/20 23:01 01/11/20 02:41 01/11/20 02:41 01/11/20 02:41 - Laboratory Result Diagrams: 01/10/20 23:15 01/10/20 23:15 Laboratory results interpreted by me: 01/10/20 01/10/20 01/11/20 23:15 23:15 00:49 Hgb 15.6 H D-Dimer 0.86 H Sodium 136.1 L - EKG Interpretation by Me Additional EKG results interpreted by me: 01/10/20 22:45 Sinus rhythm, heart rate 97, no evidence of Brugada/HCM/long QT/WPW, no significant ST segment elevations or depressions, QTC 412 Discharge - Discharge Clinical Impression: Near syncope, Acute viral syndrome, Hyponatremia Condition: Good Disposition: HOME, SELF-CARE Additional Instructions: Patient was provided with discharge information including: As a person under investigation for Covid 19, the [place] department of Health and Human Services, division of public health advises you to adhere to the following guidance until your test results are reported to you. If your test result is positive, you will receive additional information from your provider and your local health department at that time. Remain at home until you are cleared by the health provider or public health authorities. Keep a log of visitors to your home, notify any visitors to your home of your isolation status. If you plan to move to a new address or leave the county, notify the local health department in your County. Call your doctor or seek care if you have an urgent medical need. Before seeking medical care, call ahead to get instructions from the provider before arriving at the medical office clinic or hospital. Notify them that you are being tested for the virus that causes Covid 19 so that arrangements can be ma de, as necessary, to prevent transmission to others in the healthcare setting. Next, notify the local health department in your county. If a medical emergency arises and you need to call 911, inform the first responders that you are being tested for the virus that causes Covid 19. Next, notify the local health department in your county. You were found to have mild hyponatremia on your work-up, please follow this and current symptoms up with your primary doctor within 1 week. Return to ED immediately if you have worsening symptoms, syncope, inability to keep down liquids by mouth, shortness of breath, confusion, seizure, chest pain, or any other worsening or alarming symptoms. Forms: Return to Work, Work Clearance Referrals: AGUSTÍN SMITH MD [Primary Care Provider] - Follow up as needed
[2020-01-11] MEDS: RINGERS SOLUTION,LACTATED 1,000 ML IV PRN ×2 (00:37→01:45)
[2020-01-11 01:13] LABS: A TYPE INFLUENZA AG NEGATIVE (NEGATIVE); B INFLUENZA AG NEGATIVE (NEGATIVE)
--- NOTE | 2020-01-11 02:02 | RADIOLOGY REPORT (SQ) ---
CT ANGIOGRAM CHEST WITH IV CONTRAST: 01/11/2020 12:59 AM CDT HISTORY: 24-year old patient with syncope. TECHNIQUE: Postcontrast CT through the chest was performed per protocol for CT angiography. 3D Multiplanar reformations were performed at the workstation. Reconstructed sagittal and coronal images were also obtained through the chest. This exam was performed according to our departmental dose-optimization program, which includes automated exposure control, adjustment of the mA and/or KV according to the patient's size and/or use of iterative reconstruction technique. COMPARISON: None available FINDINGS: The heart size is within normal limits of size. No significant mediastinal, supraclavicular, or axillary lymphadenopathy is seen. The thoracic aorta is within normal limits of size. No filling defects are seen within the pulmonary arteries to suggest a pulmonary artery embolism. The thyroid gland is unremarkable. The central tracheobronchial tree is patent. There is no evidence of a focal consolidative airspace opacity. There is no evidence of pleural effusions or a pneumothorax. The bones demonstrate no suspicious lytic or blastic lesion. The visualized portions of the upper abdomen appear grossly unremarkable. IMPRESSION: No acute airspace opacities are seen. No filling defect is seen to suggest a pulmonary artery embolism.
[2020-01-11] MEDS ORDERED: ONDANSETRON ODT 4 MG TAB (6 TAB/ER DISP) PO PRN (02:24)
[2020-01-11 02:45] VITALS: BP 133/73
--- NOTE | 2020-01-11 07:45 | EKG REPORT ---
SEVERITY:- BORDERLINE ECG - SINUS RHYTHM LA ABNORMALITY : Confirmed by: Miguel Portillo MD 11-Jan-2020 07:45:18
== END 2020-01-11 03:03 | disposition home or self-care (01) ==
LOC: ER 22:35
DX: Z20.828 Contact with and (suspected) exposure to other viral communicable diseases (principal); R55 Syncope and collapse; B34.9 Viral infection, unspecified; E87.1 Hypo-osmolality and hyponatremia; R42 Dizziness and giddiness; R11.0 Nausea; R25.1 Tremor, unspecified
CPT/HCPCS: 93005; 96376; 99285; 96361; 96374; 36415; 82550; 83735; 84100; 84443; 84703; 85025; 87635; 80053; 84484; 85379; 87804; 71046; 70450; 71275; 93010; J2405; J7120

== ENCOUNTER 2020-09-09 05:40 | Emergency (ER) | payer BC, OTHER ==
[2020-09-09 06:07] VITALS: BP 122/67
[2020-09-09] MEDS ORDERED: IBUPROFEN 800 MG TABLET PO ONE (06:30)
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
== END 2020-09-09 07:11 | disposition home or self-care (01) ==
LOC: ER 05:40
DX: S69.92XA Unspecified injury of left wrist, hand and finger(s), initial encounter (principal); Y04.8XXA Assault by other bodily force, initial encounter; Y93.F9 Activity, other caregiving; Y99.0 Civilian activity done for income or pay
CPT/HCPCS: 99283